=== PATIENT | female | born 1935 | race Caucasian/White ===

== ENCOUNTER → 2017-12-01 | Outpatient (CLI) | payer MEDICARE ==
[~2017-12-01] MED LIST: ASCO-191 PO; ASPI81TA94 PO; ATOR10TA24 PO; ATOR10TA65 PO; CALC-734 PO; CHOL100058 PO; HYDR-2966 PO; HYDR12.561 PO; LEVO25TA61 PO; LISI-351 PO; LISI-362 PO; METH4TAB66 PO; METXL50 PO; MULT-885 PO; NITR-105 PO; OXY10 PO; OXYC-373 PO; PER PO; PERCOCET PO; ZIA10 PO; [UNRECOGNIZED DRUG - CODE] TOP
--- NOTE | 2017-12-01 13:52 | RADIOLOGY IMAGING REPORT ---
FACILITY: [facility] PATIENT NAME: Angeline Velez : 1935 MR: [id number] V: [id number] EXAM DATE: ORDERING PHYSICIAN: KEVAN LILLY TECHNOLOGIST: [place] [facility] [place] Patient: Angeline Velez : 1935 Visit/Account:[id number] Date of Sevice: 12/01/2017 T SPINE W/O CONTRAST EXAMINATION: Thoracic spine MRI without IV contrast History: Acute pain. COMPARISON STUDIES: none TECHNIQUE: Multi-planar, multi-sequence thoracic spine MRI was performed without intravenous contras t administration. FINDINGS: Paraspinal soft tissues negative. Vertebral bodies have normal height and alignment. Marrow signal in tensity appears benign. Mild degenerative disc space narrowing mid and lower thoracic spine. No disc herniations. No significant narrowing of the central canal or neural foramina. The thoracic cord has normal signal intensity and caliber. IMPRESSION: 1. No acute findings. 2. 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 Report Dictated By: Anjum Sandhu MD at 12/01/2017 1:41 PM Report E-Signed By: Anjum Sandhu MD at 12/01/2017 1:48 PM WSN:[id number]
== END ==
LOC: MRI 04:20
PROVIDERS: ATTEND Internal Medicine
DX: M47.894 Other spondylosis, thoracic region (principal)
CPT/HCPCS: 72146

== ENCOUNTER 2017-12-30 19:48 | Emergency (ER) | payer MEDICARE ==
[2017-12-30 19:55] VITALS: BP 174/77
--- NOTE | 2017-12-30 20:00 | ER Report ---
History and Physical Time Seen By MD: 19:57 Hx. of Stated Complaint: Pt got piece of steak stuck in throat and choked. Pt was able to get it out but still wants to be seen. HPI/ROS CHIEF COMPLAINT: Foreign body HISTORY OF PRESENT ILLNESS: This is an 82-year-old female who presents to the emergency department status post choking. Patient states that about 45 minutes prior to arrival she was eating at least a cast change piece of meat and the piece of meat became lodged in her esophagus and she was unable to remove for cough the form body out. Her grandson and then a bystander performed a Heimlich and the peaceably was dislodged. Patient states her voice is returning, she does have some esophageal irritation but does not feel that there is a true foreign body in there however she is unsure if the foreign body was dislodged out or if she swallowed it and it was recommended that she come into the emergency department for further evaluation. Patient denies chest pain or shortness of breath. No nausea or vomiting. No recent illnesses. REVIEW OF SYSTEMS: Respiratory: No cough, no dyspnea. Throat: As above. Cardiovascular: No chest pain, no palpitations. Gastrointestinal: As above. Musculoskeletal: No back pain. Allergies: Coded Allergies: No Known Drug Allergies (Unverified , 12/30/17) Home Meds Reported Medications Cholecalciferol (Vitamin D3) (VITAMIN D) 1,000 Unit Capsule, 1 CAP PO QDAY, CAPSULE 11/30/17 Hydrochlorothiazide (HYDROCHLOROTHIAZIDE) 12.5 Mg Tablet, 1 TAB PO QDAY, TAB 11/30/17 Lisinopril (LISINOPRIL) 10 Mg Tablet, 1 TAB PO QDAY, TAB 02/12/15 Aspirin (ASPIRIN) 81 Mg Tab.chew, 1 TAB PO QDAY, TAB.CHEW 02/12/15 Atorvastatin Calcium (ATORVASTATIN CALCIUM) 10 Mg Tablet, 1 TAB PO QDAY, TAB 02/12/15 Multivitamin (DAILY VITAMIN) 1 Each Tablet, 1 TAB PO QDAY 02/13/14 Ascorbic Acid (VITAMIN C) 1,000 Mg Tablet, 1 TAB PO QDAY 02/13/14 Calcium Carbonate/Vitamin D3 (CALCIUM 500 + D TABLET) 1 Each Tablet, 1 TAB PO QDAY 02/13/14 Levothyroxine Sodium (LEVOTHYROXINE SODIUM) 25 Mcg Tablet, 1 TAB PO QDAY 02/13/14 Discontinued Scripts Methylprednisolone (METHYLPREDNISOLONE) 4 Mg Tab.ds.pk, 4 MG PO DIRECTED, #1 PACK 0 Refills Prov:KEVAN LILLY MD 11/30/17 Oxycodone Hcl/Acetaminophen (OXYCODONE-ACETAMINOPHEN 5-325) 1 Each Tablet, 1 TAB PO QID Y for BACK PAIN, #10 TAB 0 Refills Prov:KEVAN LILLY MD 11/30/17 Past Medical/Surgical History Patient has a past medical and surgical history of hypertension, hypothyroidism , history of breast cancer, mastectomy, hysterectomy, left arm surgery. Reviewed Nurses Notes: Yes Smoking Status: Never Smoker Exposure to Second Hand Smoke?: Yes ( was a smoker) Constitutional Vital Sign - Last 24 Hours 12/30/17 19:55 Temp 98.1 Pulse 79 Resp 14 B/P (MAP) 174/77 Pulse Ox 91 O2 Delivery Room Air Physical Exam General Appearance: The patient is alert, has no immediate need for airway protection and no current signs of toxicity. Eyes: Pupils equal and round no injection. ENT: Posterior oropharynx erythema, no exudates or blood. No carotid bruits or stridor. Respiratory: Chest is non tender, lungs are clear to auscultation. Cardiac: regular rate and rhythm. Gastrointestinal: Abdomen is soft and non tender, no masses, bowel sounds normal. Musculoskeletal: Neck: Neck is supple and non tender. Extremities have full range of motion and are non tender. Skin: No rashes or lesions. DIFFERENTIAL DIAGNOSIS: After history and physical exam differential diagnosis was considered for esophageal irritation, esophageal foreign body. Medical Decision Making EKG/Imaging Imaging Location: [facility] [place] Patient: Angeline Velez : 1935 Visit/Account:[id number] Date of Sevice: 12/30/2017 2 VIEWS CHEST INDICATION: Choked on a piece of meat. COMPARISON: 01/22/2014. FINDINGS: Cardiomediastinal silhouette and pulmonary vessels within normal limits. There is again a prominent pericardial fat pad in the right cardiophrenic region which is stable. There is no focal infiltrate or lobar consolidation. There is no pneumothorax or pleural effusion. No nodule. Upper abdomen is unremarkable. No indication of radiopaque foreign body. Surgical clips seen in the right axilla and are unchanged. This is stable mild compression of the L1 vertebral body. No acute bony abnormality. IMPRESSION: 1. No acute cardiopulmonary process. No radiopaque foreign body. Report Dictated By: Los Watson at 12/30/2017 8:37 PM Report E-Signed By: Los Watson at 12/30/2017 8:44 PM WSN:[id number] ED Course/Re-evaluation ED Course The patient was admitted to room. A history and physical were obtained. Differential diagnoses were considered. A two-view chest x-ray showing no acute cardiopulmonary process, no foreign body. Patient states that she does feel that the foreign body was removed R there is a little bit of esophageal irritation, the patient has no other complaints or concerns. I did review these results with the patient and did tell her that she should expect some irritation for the next 12-24 hours and consider soft foods, honey for some throat irritation or ibuprofen or Tylenol. Patient was in agreement with this plan care and discharged home. Decision to Disposition Date: Dec 30, 2017 Decision to Disposition Time: 20:54 Depart Departure Latest Vital Signs Vital Signs Date Time Temp Pulse Resp B/P (MAP) Pulse Ox O2 Delivery O2 Flow Rate FiO2 12/30/17 19:55 98.1 79 14 174/77 91 Room Air Impression: Primary Impression: Esophageal foreign body Condition: Improved Disposition: HOME OR SELF-CARE Referrals: KEVAN LILLY MD (PCP) Patient Instructions: Esophageal Foreign Body (ED) Additional Instructions: Drink plenty of water. Get plenty of rest. Be sure to follow-up with your primary care provider if you have any concerns of increased shortness of breath chest pain, fevers aches or chills or concerns of pneumonia secondary to the foreign body. Try soft foods for the next 12-24 hours. Take ibuprofen or Tylenol if needed for irritation. Return to the emergency department for any other concerns or worsening symptoms. Problem Qualifiers Primary Impression: Esophageal foreign body Encounter type: initial encounter Qualified Codes: T18.108A - Unspecified foreign body in esophagus causing other injury, initial encounter AD ESQUIVELP-BC Dec 30, 2017 20:00
--- NOTE | 2017-12-30 20:48 | RADIOLOGY IMAGING REPORT ---
FACILITY: [facility] - [place] PATIENT NAME: Angeline Velez : 1935 MR: [id number] V: [id number] EXAM DATE: ORDERING PHYSICIAN: AD ESQUIVEL TECHNOLOGIST: Location: [facility] Patient: Angeline Velez : 1935 Visit/Account:[id number] Date of Sevice: 12/30/2017 2 VIEWS CHEST INDICATION: Choked on a piece of meat. COMPARISON: 01/22/2014. FINDINGS: Cardiomediastinal silhouette and pulmonary vessels within normal limits. There is again a prominent p ericardial fat pad in the right cardiophrenic region which is stable. There is no focal infiltrate or lobar consolidation. There is no pneumothorax or pleural effusion. No nodule. Upper abdomen is unremarkable. No indication of radiopaque foreign body. Surgical clips seen in the r ight axilla and are unchanged. This is stable mild compression of the L1 vertebral body. No acute bon y abnormality. IMPRESSION: 1. No acute cardiopulmonary process. No radiopaque foreign body. Report Dictated By: Los Watson at 12/30/2017 8:37 PM Report E-Signed By: Los Watson at 12/30/2017 8:44 PM WSN:[id number]
== END 2017-12-30 21:02 | disposition home or self-care (01) ==
LOC: ER 19:53
DX: T18.128A Food in esophagus causing other injury, initial encounter (principal)
CPT/HCPCS: 71046; 99283

== ENCOUNTER → 2018-01-19 | Outpatient (CLI) | payer MEDICARE | LOC: LAB 10:30 | PROVIDERS: ATTEND Otolaryngology | DX: H90.42 Sensorineural hearing loss, unilateral, left ear, with unrestricted hearing on the contralateral side (principal); H91.92 Unspecified hearing loss, left ear | CPT/HCPCS: 36415; 82565; 83516; 84439; 84443; 86255; 86592 ==

== ENCOUNTER → 2018-01-24 | Outpatient (CLI) | payer MEDICARE ==
[~2018-01-24] MED LIST changes: +GADOBENATE 529MG/1ML 15ML VIAL IVP ONE
--- NOTE | 2018-01-24 12:39 | RADIOLOGY IMAGING REPORT ---
FACILITY: [facility] - [place] PATIENT NAME: Angeline Velez : 1935 MR: [id number] V: [id number] EXAM DATE: ORDERING PHYSICIAN: GERHARD THOMPSON TECHNOLOGIST: Location: [facility] Patient: Angeline Velez : 1935 Visit/Account:[id number] Date of Sevice: 01/24/2018 Examination: Internal auditory canal MR without and with contrast History: Left-sided hearing loss Comparison: None Technique: Multiplane pre and postcontrast MR imaging performed through the internal auditory canals. 15 mL MultiHance injected. Sagittal T1, axial FLAIR, coronal T2 and diffusion sequences performed th rough the brain. Findings: There is no diffusion restriction, hydrocephalus or midline shift. Minimal confluent periventricular white matter high signal and a few scattered punctate white matter high signal foci in keeping with m inimal chronic small vessel ischemic change. Partially empty sella. Mild parenchymal atrophy. Small l eft maxillary sinus mucous retention cyst. Normal CP angle and internal auditory canal regions without pathologic enhancement. Expected fluid si gnal within the inner ear structures. No vestibular aqueduct enlargement. Trace to small left mastoid effusion noted. IMPRESSION: Normal internal auditory canal MR without and with contrast. No abnormality seen to explain the patie nt's hearing loss. Report Dictated By: Willie Christensen MD at 01/24/2018 12:30 PM Report E-Signed By: Willie Christensen MD at 01/24/2018 12:34 PM WSN:[id number]
== END ==
LOC: MRI 01:18
PROVIDERS: ATTEND Otolaryngology
DX: H91.92 Unspecified hearing loss, left ear (principal); H90.42 Sensorineural hearing loss, unilateral, left ear, with unrestricted hearing on the contralateral side
CPT/HCPCS: 70553; A9577

== ENCOUNTER → 2018-02-03 | Outpatient (CLI) | payer MEDICARE ==
[~2018-02-03] MED LIST changes: -GADOBENATE 529MG/1ML 15ML VIAL IVP ONE
== END ==
LOC: LAB 14:39
PROVIDERS: ATTEND Internal Medicine
DX: R35.0 Frequency of micturition (principal); B96.20 Unspecified Escherichia coli [E. coli] as the cause of diseases classified elsewhere
CPT/HCPCS: 81001; 87077; 87088; 87186

== ENCOUNTER → 2018-02-17 | Outpatient (CLI) | payer MEDICARE ==
[~2018-02-17] MED LIST changes: +CIPR-214 PO
== END ==
LOC: LAB 09:19
PROVIDERS: ATTEND Internal Medicine
DX: R39.15 Urgency of urination (principal)
CPT/HCPCS: 81001; 87088

== ENCOUNTER → 2019-01-20 | Outpatient (CLI) | payer MEDICARE ==
[~2019-01-20] MED LIST changes: +BENZ200C15 PO; +GUAI120L3 PO
== END ==
LOC: LAB 10:07
PROVIDERS: ATTEND Nurse Practitioner Family
DX: R35.0 Frequency of micturition (principal); R30.0 Dysuria; R30.9 Painful micturition, unspecified
CPT/HCPCS: 81001